=== PATIENT | female | born 1995 | race Two or more races ===

== ENCOUNTER 2022-08-11 17:30 | Outpatient (CLI) | payer MEDICAID, SELFPAY ==
[2022-08-11 17:58] VITALS: BP 120/81; PULSE 93
[2022-08-11 18:54] LABS: ROM Internal Control Test YES-OK TO RESULT pt. (Internal QC); ROM Patient Test Negative (Negative)
--- NOTE | 2022-08-14 19:16 | OB.TRI.NOTE ---
HPI - General General Date of Admission: 08/11/22 Date of Service: 08/11/22 HPI Narrative ROSSY COHEN, is a 27 F who presents at 39 weeks for possible SROM. PFSH PFSH Home Medications 1 cap PO/SL DAILY 08/11/22 [History Last Taken 08/12/22 21:00] Allergy/AdvReac Type Severity Reaction Status Date / Time No Known Allergies Allergy Verified 08/13/22 23:19 Surgical History (Updated 08/14/22 @ 01:19 by Rosalie Plata) History of gynecologic surgery History of surgery Social History Smoking Status: Never smoker History Elective abortions Hx Para 1 Spontaneous abortions Hx # Term Pregnancies Ectopic pregnancies Hx # Pregnancies Multiple births # of living children NST FHR Rate Baby A Baseline: normal Variability:: Moderate Accelerations:: 15 x 15 Decelerations:: None NST Reactive:: Yes FHR Category:: Category I Uterine Activity:: irreg ctxs Assessment & Plan (1) 39 weeks gestation of : PLAN: Plan false labor, no evidence of SROM. D/c home w/ labor precautions. F/u prn or as scheduled
== END 2022-08-11 19:14 | disposition home or self-care (01) ==
LOC: WPOUT 17:40 → WP 17:42
PROVIDERS: Obstetrics & Gynecology; PCP Obstetrics & Gynecology; Visit Provider Advanced Practice Midwife
DX: O47.1 False labor at or after 37 completed weeks of gestation (principal); Z3A.39 39 weeks gestation of pregnancy
CPT/HCPCS: 59025; 59050; 84112; 99221; G0378

== ENCOUNTER 2022-08-14 00:11 | Inpatient (IN) | payer MEDICAID, SELFPAY ==
[2022-08-13 23:07] VITALS: BMI 29.2
[2022-08-13 23:20] VITALS: BP 123/81; PULSE 96; TEMP 36.6
[2022-08-13 23:21] VITALS: PULSE 98; O2SAT 98
[2022-08-14] VITALS (31 sets, daily range): BP systolic 121–141; BP diastolic 70–82; PULSE 65–95; RESP 15–16; TEMP 36.1–36.9; O2SAT 98–100
[2022-08-14 00:09] LABS: ROM Internal Control Test YES-OK TO RESULT pt. (Internal QC)
[2022-08-14 00:10] LABS: ROM Patient Test POSITIVE (Negative)
[2022-08-14] MEDS: Lactated Ringers 1,000 ML 50 ML IV (00:40)
[2022-08-14 00:53] LABS: Absolute Lymphocyte Count 2.95 X10^3/uL (0.83-4.51); Absolute Neutrophil Count 6.6 X10^3/uL (2.0-7.7); Basophil# 0.01 X10^3/uL; Basophil% 0.1 % (0-1); Eosinophil# 0.03 X10^3/uL; Eosinophils% 0.3 % (0-5); Hematocrit 35.2 % (37-47); Hemoglobin 11.3 g/dL (12.0-15.0); Lymphocyte # 2.95 X10^3/ul (0.83-4.51); Lymphocyte % 28.5 % (19-41); Mean Corp Hgb Conc 32.1 g/dL (32-36); Mean Corpuscular Hgb 26.8 pg (27.0-32.0); Mean Corpuscular Volume 83.4 fL (81-99); Mean Platelet Vol. 11.3 fl (6.2-12.0); Monocyte# 0.76 X10^3/uL; Monocyte% 7.3 % (0-10); NRBC Flagged by Analyzer 0 % (0-5); Neutrophil # 6.55 X10^3/uL (2.7-7.7); Neutrophil % 63.2 % (47-70); Platelet Count 194 K/mm3 (150-450); RBC Distribution Width CV 14.1 % (11.6-14.6); RBC Distribution Width SD 42.4 fl (35.1-43.9); Red Blood Count 4.22 M/mm3 (4.2-5.4); White Blood Count 10.4 K/mm3 (4.4-11.0)
[2022-08-14] MEDS: Oxytocin 15 Units/NS 250ml 15 UNITS/250 ML IV.SOLN 2 UNITS IV (01:40)
[2022-08-14] MEDS: Oxytocin 10 UNITS/ML Vial IM (04:51)
--- NOTE | 2022-08-14 05:04 | PCM.OPRPT ---
Problems Associated Problem List Diagnoses (1) 39 weeks gestation of : (2) Active labor at term: Report of Operation Date of Procedure: 08/14/22 Pre-Operative Diagnosis: 39 week gestation, single IUP, labor at term Post-Operative Diagnosis: As above Surgery/Procedure Performed:: 2nd degree perineal laceration repair Description of Surgical Findings:: VMI delivered in KENNETH position. Apgars 9, 9. Male weighing 7 lb 4 oz. Normal appearing placenta with 3 VC. 2nd degree perineal laceration Surgeon: Yesenia Heck Type of Anesthesia: None Special Medications: None Specimen's removed: Placenta Drains: None Estimated Blood Loss (mL): 100 Fluids Replaced: N/A Description of Procedure: The patient was complete and pushing. The anterior shoulder was delivered with gentle downward traction, followed by the posterior shoulder and body of the infant without any force, delay, or traction. A vigorous viable male infant was delivered atraumatically and placed on the maternal abdomen. The cord was clamped and cut after a 60 second delay. The placenta was delivered with fundal massage and noted to be normal-appearing and intact with three-vessel cord. The fundus was firm and bleeding hemostatic. A second-degree perineal laceration was noted. After infiltration with local the second-degree perineal laceration was repaired with 3-0 Vicryl in usual fashion. Vaginal sweep was performed. Sponge and sharp counts were correct. Grafts/Implants Used: None Complications None Admit VTE Documentation VTE Present on Admission: No
--- NOTE | 2022-08-14 05:09 | PCM.HP.OB ---
HPI - General General Date of Admission: 08/14/22 Date of Service: 08/14/22 Chief Complaint: labor HPI Narrative ROSSY COHEN, is a 27 F who presented at 39w5d with SROM and irregular contractions. No vb. Good FM. No complaints. PFSH PFSH Home Medications 1 cap PO/SL DAILY 08/11/22 [History Last Taken 08/12/22 21:00] Allergy/AdvReac Type Severity Reaction Status Date / Time No Known Allergies Allergy Verified 08/13/22 23:19 Surgical History (Updated 08/14/22 @ 01:19 by Rosalie Plata) History of gynecologic surgery History of surgery Social History Smoking Status: Never smoker History Elective abortions Hx Para 1 Spontaneous abortions Hx # Term Pregnancies Ectopic pregnancies Hx # Pregnancies Multiple births # of living children NST FHR Rate Baby A FHR Category:: Category I Uterine Activity:: Ctx q 3-7 min Vital Signs Vital Signs Vital Signs: 08/13/22 23:20 08/13/22 23:20 08/13/22 23:21 Temperature Temperature Source Pulse Rate 96 98 Blood Pressure 123/81 H BP Systolic 123 BP Diastolic 81 Pulse Ox 08/13/22 23:21 08/13/22 23:20 08/13/22 23:20 Temperature 97.8 F Temperature Source Temporal Pulse Rate Blood Pressure BP Systolic BP Diastolic Pulse Ox 98 08/13/22 23:20 08/13/22 23:20 08/14/22 01:01 Temperature 97.8 F Temperature Source Temporal Pulse Rate Blood Pressure 132/81 H BP Systolic 132 BP Diastolic 81 Pulse Ox 08/14/22 01:01 08/14/22 01:01 08/14/22 01:02 Temperature Temperature Source Temporal Pulse Rate 82 Blood Pressure BP Systolic BP Diastolic Pulse Ox 100 08/14/22 01:02 08/14/22 01:56 08/14/22 01:57 Temperature 97.4 F L Temperature Source Temporal Pulse Rate Blood Pressure 124/82 H BP Systolic 124 BP Diastolic 82 Pulse Ox 08/14/22 01:57 08/14/22 01:56 08/14/22 03:35 Temperature 98.1 F Temperature Source Temporal Pulse Rate 75 Blood Pressure BP Systolic BP Diastolic Pulse Ox 08/14/22 03:35 08/14/22 03:35 08/14/22 03:35 Temperature Temperature Source Pulse Rate 85 Blood Pressure 122/81 H BP Systolic 122 BP Diastolic 81 Pulse Ox 100 08/14/22 03:35 08/14/22 05:02 08/14/22 05:02 Temperature 97.0 F L Temperature Source Pulse Rate 88 Blood Pressure BP Systolic BP Diastolic Pulse Ox 100 08/14/22 05:03 08/14/22 05:03 08/14/22 05:07 Temperature Temperature Source Pulse Rate 95 75 Blood Pressure 141/72 H BP Systolic 141 BP Diastolic 72 Pulse Ox 08/14/22 05:07 Temperature Temperature Source Pulse Rate Blood Pressure BP Systolic BP Diastolic Pulse Ox 100 Weight Weight: 165 lb 5.547 oz Body Mass Index (BMI) 29.2 Labs Labs Labs: Blood Type B POSITIVE Antibody Screen NEGATIVE Hct 35.2 % (37-47) L Hgb 11.3 g/dL (12.0-15.0) L Assessment & Plan (1) 39 weeks gestation of : PLAN: Patient presented to L&D with SROM and irregular ctx's. Pitocin started for augmentation. GBS negative. Pelvis adequate and expected EFW < 4500 g. See delivery report for vaginal delivery. (2) SROM (spontaneous rupture of membranes):
[2022-08-14] MEDS: 0.9% Saline Lock 10 ML Syringe IV (05:35)
[2022-08-14] MEDS: Acetaminophen 500 MG Tablet 1000 MG PO (06:34)
[2022-08-14] MEDS: Ibuprofen 600 MG Tablet PO (12:18)
--- NOTE | 2022-08-15 07:36 | PCM.PN.OB ---
Subjective Subjective Interpretation services utilized. Patient resting. Denies any pain. Ambulating and voiding. Bottle feeding infant. Desires discharge home tomorrow. Objective Data Objective Data Vital Signs: Vital Signs Temp Pulse Resp BP Pulse Ox O2 Del Method 98.4 F 71 16 127/75 H 99 Room Air 08/14/22 23:53 08/14/22 23:53 08/14/22 23:53 08/14/22 23:53 08/14/22 15:45 08/14/22 23:53 Oxygen Delivery Method Room Air Weight: 165 lb 5.547 oz Body Mass Index (BMI) 29.2 Intake & Output: Intake and Output for Last 24 Hours 08/13/22 08/14/22 08/15/22 23:59 23:59 23:59 Intake Total 396.01 / 396.01 Output Total 800 / 800 Balance -403.99 / -403.99 Lab / Micro Data Result Diagrams: 08/14/22 00:40 ROS Eyes Eyes: Denies blurry vision, change in vision or spots in vision ENT HEENT: Denies dizziness or headache(s) Cardiovascular Cardiovascular: Denies abdominal pain, chest pain or dyspnea Respiratory/Chest Respiratory/Chest: Denies cough, dyspnea, shortness of breath at rest or shortness of breath with exertion Gastrointestinal Gastrointestinal: Denies abdominal pain, diarrhea or vomiting Genitourinary Genitourinary: Denies change in urinary stream, difficulty urinating or dysuria Musculoskeletal Musculoskeletal: Reports none Integumentary Integumentary: Denies rash Neurologic Neurologic: Denies dizziness, headache(s), memory loss or weakness Physical Exam Const alert and no apparent distress General Appearance: cooperative and comfortable Exam Limitations: no limitations HEENT normocephalic Eyes General Eye: normal appearance of both eyes Neck full ROM General: normal visual inspection Chest Chest: symmetrical chest wall rise Resp normal respiratory effort and normal air movement Effort and Inspection: symmetric chest movement Auscultation: clear to auscultation bilaterally Cardio regular rate and regular rhythm GI normal to inspection, nondistended, normoactive bowel sounds Back/Spine normal ROM Extremity full ROM and no calf tenderness General Extremity: normal exam except as noted Skin no rashes or lesions noted Neuro CN's II-XII intact bilaterally Psych mental status grossly normal Assessment & Plan (1) (spontaneous vaginal delivery): (2) Language barrier: PLAN: Plan PPD 1 Bottle feeding Pain control Anticipate discharge home tomorrow
[2022-08-15 09:16] VITALS: BP 115/70; PULSE 81
[2022-08-15 09:26] VITALS: BP 115/70; PULSE 70; RESP 14; TEMP 36.6; O2SAT 99
[2022-08-15 14:40] VITALS: BP 124/77; PULSE 70; RESP 14; TEMP 36.9; O2SAT 98
[2022-08-15 14:48] VITALS: BP 124/77; PULSE 70
[2022-08-15 20:00] VITALS: BP 131/85; PULSE 86; RESP 16; TEMP 36.7
--- NOTE | 2022-08-15 21:33 | CASEMGMT ---
Social Work Assessment Labor and Delivery Unit Patient Address:[facility] [place] [address] [place] [address] Phone number: [phone] Date of Referral: 08/15/22 Time of Referral:? 5am Referred By: MD Song Date of Intervention: ??08/15/22 Time of Intervention:? 11:50am Reason for Referral:? resources History obtained from: medical records and mother of baby, [place] Household composition: MOB reports she and FOB have been living at [facility] for 1 year and 3 months. MOB reports they moved here from [place] with the help of friends. Patient's parent/guardian status: MOB reports she and FOB are living in [facility] for over a year since moving from [place]. MOB [place] to [place] but stayed after discovering she was . MOB explained they have a nine year old daughter who currently lives in [place] with her in-laws. MOB explained her daughter will continue to live with her in-laws until they are unable to care for her, at which time she will send for her daughter to come to [place]. MOB reports she and FOB are unemployed, however, the friend that assisted them in moving from [place] helps them pay their bills and stay at [facility]. MOB reports FOB will help care for her and NB, explaining they are happy and each other?s support. No concerns regarding DV at this time. Medical History: SLADE has had three pregnancies with two leading to delivery, including current NB and nine year old daughter residing in [place]. Per medical records, MOB started care with [facility] at 8 weeks. NB was born 08/14/22 weighing 7lbs 4 oz, Apgars 9 and named vit. MOB plans to breast feed and bottle feed depending on her breast milk supply. Educational Status:? per medical records, some college reported. Financial Status: MOB reports she and FOB are currently unemployed but have financial help from their friends that assisted them in moving to [place]. MOB report these friends also reside at the same hotel. Infant Supplies: MOB reports they have nothing for the baby at home. Per medical records MOB reported having a safe sleep space for . (Car seat was brought in by FOB after assessment was complete). ?? Childcare/Caregiver(s):? MOB and FOB will be home to care for as they are both unemployed. Transportation:? MOB reports they have assistance with transportation from their friend that lives in hotel. ?? Programs/Agencies Involved: ??MOB reports not working wit any community agencies, however, per medical records MOB has WIC card. ? Children Services/Legal Issues:? none reported, SW to make CSB report regarding lack of items needed to care for infant? Behavioral Health Issues: ??Mental Health History: MOB reports no mental health concerns, stating she and FOB are happy and each other?s support. ???Substance Use History: none reported ?Drug Screens: no significant findings or concerns ?? Family/Social Stressors: MOB reports she is in [place] but stayed in [place] when she discovered she was . MOB reports their friends from [place] assisted them in coming to [place] and have been continuing to pay for their hotel and assist with transportation (these friends also currently reside in the hotel). MOB report she and FOB are currently unemployed. MOB reports not having items needed to care for . MOB explained they did not have a plan regarding how they would get items needed for NB as they don?t have an income. ?? Support Systems: MOB reports she is supported by FOB and their friends in the hotel. ? Depression/Shaken Baby/Safe Sleeping: CHARMAINE Heredia informed patient still needed this information, Khoi Heredia to meet with MOB on Wednesday to review information. ? ASSESSMENT:? CHARMAINE met with MOB and utilized an medical screener on the ipad as patient speaks gujarati. CHARMAINE introduced herself and role as [facility] Film Inspector. MOB was sitting on bed with NB and agreeable to speak with CHARMAINE. MOB was able to provide requested information. CHARMAINE voiced concerns about infant being discharged tomorrow as MOB reports they do not have items needed to care for . MOB explained she would like to return home as she is a vegetarian and would prefer to prepare and eat her own food. CHARMAINE emphasized the importance of NB being safe and having his needs met prior to MOB and NB being discharged home. CHARMAINE also explained due to it being a weekend, referrals for services and items needed wouldn?t be able to be gathered until Wednesday. SW to follow up with CHARMAINE Heredia to further discuss concerns and plan for discharge. MOB voiced understanding, no other questions at this time. ? CHARMAINE contacted CHARMAINE Heredia to discuss concerns. CHARMAINE encouraged to contact CSB, [facility] php consultant to discuss NB being discharged on Wednesday rather than Wednesday and following up with MOB with plan to discharge Wednesday so CHARMAINE Heredia can assist with resources and items needed. CHARMAINE contacted [facility] and made referral to Michael. CHARMAINE provided demographic information and reviewed concerns about MOB living in hotel, having support to come to [place] from [place] from a friend who is currently living in the same hotel and assisting MOB with transportation and financial support. SW also reported concerns regarding MOB reporting not having items needed to care for infant such as diapers, formula or clothing. Michael to call dehydrogenation supervisor and then contact SW. Michael left SW a voicemail inquiring if contact could be made with MOB?s friend to ask if they are able to buy things needed for but encouraged discharge to be postponed until Wednesday. CHARMAINE contacted [facility] php consultant working with MOB and reviewed concerns. [employer] Manager in agreement to not discharge NB until Wednesday. CHARMAINE attempted to meet with MOB, however, an medical screener was not available for at least another hr. CHARMAINE met with MOB and FOB with the use of the [employer] medical screener. CHARMAINE reviewed concerns regarding patient being discharged tomorrow. CHARMAINE explained the will not be cleared for discharge until Wednesday to ensure he will have what is needed for his care. MOB reports wanting to go home to be able to prepare food with her and eat [place] style. SW continued to voice concerns but explained if MOB wanted to leave, she was able, however, the could not discharge until Wednesday. MOB explained she would stay with until Wednesday and FOB would come and go as he is able. MOB inquired about when SW could meet with her on Wednesday. MOB also reported their friend might not be available Wednesday to take them home due to possibly going to [place]. SW explained the social science manager would be coming into work on Wednesday at 8am and would likely see her in the morning. SW also explained she would inform SW of possible transportation needs on Wednesday. FOB and MOB requested SW inform their friend?s via phone of discharging Wednesday. Their friend was on speaker phone in the room, SW explained discharge will be Wednesday to ensure NB and MOB have what they need to care for NB, then FOB continued call separately. MOB reported no other needs. CHARMAINE reiterated the plan will be for NB and MOB to stay at hospital until Wednesday to meet with SLADE Lyman in agreement. CHARMAINE updated RN. PLAN:? MOB and NB staying until Wednesday to receive support for resources. Referrals will be needed and addressed with CHARMAINE Heredia on Wednesday. Iliana Guadarrama MSW, MARIANN
--- NOTE | 2022-08-15 23:49 | NURSING ---
Used heat treater helper Nisa [phone] at [phone] and Chuck [id number] at [phone]
[2022-08-16] VITALS (9 sets, daily range): BP systolic 109–134; BP diastolic 71–81; PULSE 63–108; RESP 16–18; TEMP 36.7–36.9; O2SAT 96–99
--- NOTE | 2022-08-16 07:01 | NURSING ---
At 0630, this RN and ped Dr. gamble into room to talk to pt using roulette dealer yuli [id number]. Went over a lot of education about feeding schedule as MOB told the roulette dealer everytime the baby cries, he is saying he is hungry so she feeds him and that is about every 1.5 hours. Ped and this RN discussed not wanting to feed to much and try keeping him around 30 cc every 3-4 hours and look at trying to soothe him or change his diaper when he first starts crying and seeing if that resolves his crying. We demonstrated on how to swaddle him and sometimes that can help him feel safe and warm. MOB said she will try those things and be more cautious with feeding him too much.
--- NOTE | 2022-08-16 07:31 | PCM.PN.OB ---
Subjective Subjective Interpretation services utilized. Bottle feeling infant. Ambulating and voiding without difficulty. Lochia is decreasing. Denies any headache, vision changes, SOB or CP. Patient to be discharged today but CSB involved and infant will not be discharged at this time. Objective Data Objective Data Vital Signs: Vital Signs Temp Pulse Resp BP Pulse Ox O2 Del Method 98.0 F 74 16 130/81 H 98 Room Air 08/16/22 02:00 08/16/22 02:00 08/16/22 02:00 08/16/22 02:00 08/15/22 14:40 08/15/22 14:40 Oxygen Delivery Method Room Air Weight: 165 lb 5.547 oz Body Mass Index (BMI) 29.2 Intake & Output: Intake and Output for Last 24 Hours 08/14/22 08/15/22 08/16/22 23:59 23:59 23:59 Intake Total 396.01 / 396.01 Output Total 800 / 800 Balance -403.99 / -403.99 Lab / Micro Data Result Diagrams: 08/14/22 00:40 ROS Eyes Eyes: Denies blurry vision, change in vision or spots in vision ENT HEENT: Denies dizziness or headache(s) Cardiovascular Cardiovascular: Denies abdominal pain, chest pain or dyspnea Respiratory/Chest Respiratory/Chest: Denies cough, dyspnea, shortness of breath at rest or shortness of breath with exertion Gastrointestinal Gastrointestinal: Denies abdominal pain, diarrhea or vomiting Genitourinary Genitourinary: Denies change in urinary stream, difficulty urinating or dysuria Musculoskeletal Musculoskeletal: Reports none Integumentary Integumentary: Denies rash Neurologic Neurologic: Denies dizziness, headache(s), memory loss or weakness Physical Exam Const alert and no apparent distress General Appearance: cooperative and comfortable Exam Limitations: no limitations HEENT normocephalic Eyes General Eye: normal appearance of both eyes Neck full ROM General: normal visual inspection Chest Chest: symmetrical chest wall rise Resp normal respiratory effort and normal air movement Effort and Inspection: symmetric chest movement Auscultation: clear to auscultation bilaterally Cardio regular rate and regular rhythm GI normal to inspection, nondistended, normoactive bowel sounds Back/Spine normal ROM Extremity full ROM and no calf tenderness General Extremity: normal exam except as noted Skin no rashes or lesions noted Neuro CN's II-XII intact bilaterally Psych mental status grossly normal Assessment & Plan (1) Language barrier: (2) (spontaneous vaginal delivery): PLAN: Plan PPD 2 Routine care Pain control D/C home with follow up in office- patient to stay hotel status due to infant not being discharged. Social work and CSB involved due to severe limited resources.
--- NOTE | 2022-08-16 07:36 | DCINST_ITS ---
Discharge Instructions Diet Discharge Diet: No restrictions Activity Discharge Activity: Return to Normal Activity, May Shower and May Take a Tub Bath May resume sexual activity in: 4-6 weeks Weight Bearing Status: Weight bearing as tolerated Dressing / Incision Call your doctor if you observe: Inability to urinate, Using more than 1 pad per hour, Shortness of breath, Dizziness, Swelling in the ankles, Chest pain, Calf discomfort and Uncontrolled pain Follow Up Care When: Within 14 days Test Results: Test results from this visit will be discussed in further detail at your follow- up appointment, if applicable. Discharge Plan Admission Admit Date/Time: 08/14/22 00:11 Attending Provider: Yesenia Heck Primary Care Provider: Care Physician,Magdalene Primary Discharge Orders/Prescriptions Prescriptions: No Action 1 cap PO/SL DAILY Referrals / Follow Up: Care Physician,No Primary [Primary Care Provider] - Disposition Disposition (needs filled in before D/C Order can be placed): Home, Self Care
--- NOTE | 2022-08-17 13:00 | CASEMGMT ---
Social Work Labor and Delivery Unit Conversation with the mother of baby (MOB) conducted via managing partner services. Fender Mechanic Apprentice Stanley #[id number] provided interpretation for Ivette. Handoff received from clinical social work aide Iliana Guadarrama regarding concerns related for this family in particular not having basic needs available to care for the baby. Children services referral was initiated over the weekend to [facility]. Refer to prior social work documentation for further details at this family's background. This radio news writer spoke with Michael Lui from [facility] children services who reports has been in contact with the care center and was able to secure a pack and play for this family as well as some basic needs such as clothing and diapers and formula. Children services will be making help grow referral for some continued and ongoing support to this family. Michael reports plan to arrive to the hospital to do some paperwork with the family and go and gather these items up and help deliver to the family's hotel today. Met with the mother of baby and father of baby (FOB) Celio Denny. Introduced to self and social work role. Updated to the plan for children services to arrive to the hospital today to help with final securing of resources for this family. Provided this family written information in their primary language on safe sleeping and what this means. Via managing partner services the family expressed understanding of safe sleeping. Unable to find written material on shaken baby prevention though verbally reviewed this with the family and reinforced importance of seeking out support when needed. This radio news writer provided some additional clothing for the family to take home. MOB and FOB expressed high appreciation for assistance given. MOB did question how long the assistance was going to last. This radio news writer expressed that uncertain the length of time this supplies would last, but the goal would be to help get family linked in with services that would help increase sustainability. Children services arrived to the unit and confirmed ability to get needed supplies. Updated nursing and patient coordinator that infant should be able to be discharged today once children services concludes meeting in the room. Plan: Infant discharging home with parents, children services to follow and is actively assisting family and getting basic needs set up to care for the baby. -JEFF Lamar, SCIENTIFIC DIRECTOR *This note was generated with [employer] software. It may contain incorrect words, spelling, and punctuation that were not noted in review of the chart prior to signing*
--- NOTE | 2022-09-23 10:31 | CASEMGMT ---
Social Work Note SW received letter from [facility] stating The assessment/investigation has concluded; the case will not be referred for ongoing child welfare services. damper worker was Bubba Reyna and supervisor adult education was Gagandeep Gilbert. Iliana CASTELLANOS, MARIANN
== END 2022-08-16 22:00 | disposition home or self-care (01) | DRG 807 ==
LOC: WPOUT 00:13 → WP 00:13
PROVIDERS: Admitting Provider Obstetrics & Gynecology; Referring Provider Obstetrics & Gynecology; Visit Provider Obstetrics & Gynecology
DX: O42.92 Full-term premature rupture of membranes, unspecified as to length of time between rupture and onset of labor (principal); Z37.0 Single live birth; O70.1 Second degree perineal laceration during delivery; Z3A.39 39 weeks gestation of pregnancy; Z59.01 Sheltered homelessness
CPT/HCPCS: 59025; 59050; 84112; 85025; 86850; 86900; 86901; 99221; J7120; A4216; G0378